=== PATIENT | male | born 1945 | race African-American/Black ===

== ENCOUNTER 2016-06-14 11:08 | Observation (INO) | payer OTHER, MEDICARE ==
[~2016-06-14] VITALS: Ht 185.4 cm; Wt 63.6 kg
[~2016-06-14 11:08] MED LIST: LORTAB 5 OR; PENICILLN VK500 MG OR
--- NOTE | 2016-06-14 11:08 | NUR ---
PT TO ROOM VIA EMS FOR TREATMENT
[2016-06-14 12:02] LABS: HEMATOCRIT 30.2 % (39.0-50.0); HEMOGLOBIN 10.5 g/dl (14.0-18.0); IMMATURE GRANULOCYTES 0.5 % (0.0-1.0); MEAN CELL VOLUME 107.9 fL CALC (80.0-100.0); MEAN CORPUSCULAR HGB 37.5 pG CALC (26.0-32.0); MEAN CORPUSCULAR HGB CONC 34.8 g/L CALC (32.0-36.0); NEUT# 4.92 thou/uL (1.82-7.42); RED BLOOD COUNT 2.8 mill/uL (4.70-6.10); RED CELL DISTRI WIDTH 11.9 % (11.5-15.5)
--- NOTE | 2016-06-14 12:15 | NUR ---
PT RESTIN GUILLERMO STRETCHER WITH NO SIGNS OF DISTRESS. RESP ARE EQUAL ANODNLABORED. IV SITE HEALTHY. PT NORMOTENSIVE WITH NO VOICED COMPLAINMTS AT [facility].
[2016-06-14 12:19] LABS: ALBUMIN 2.7 g/dL (3.2-5.0); ALKALINE PHOSPHATASE 156 u/l (38-126); ANION GAP 17 (6-22 (CALC)); BILIRUBIN, TOTAL 0.5 mg/dL (0.0-1.4); BUN 4 mg/dL (8-23); BUN/CREATININE RATIO 7 (12-20 (CALC)); CALCIUM 8.2 mg/dL (8.4-10.2); CARBON DIOXIDE 20 mmol/l (22-30); CHLORIDE 99 mmol/l (95-108); CREATININE 0.6 mg/dL (0.7-1.3); GFR > 60 ML/MIN (>=60 (CALC)); GFR FOR AFR.AMER. > 60 ML/MIN (>=60 (CALC)); GLUCOSE 112 mg/dL (82-115); POTASSIUM 3.9 mmol/l (3.5-5.1); SGOT/AST 38 u/l (19-48); SGPT/ALT 25 u/l (11-66); SODIUM 131 mmol/l (137-146); TOTAL PROTEIN 6.7 g/dL (6.3-8.2)
[2016-06-14 12:29] LABS: MYOGLOBIN 21 ng/mL (0 - 121)
--- NOTE | 2016-06-14 12:51 | NUR ---
Attempted to reconcile pt's home medications. Called Home care nurse # [phone]. No answer. Message left to return call with list of home meds.
--- NOTE | 2016-06-14 13:30 | NUR ---
PT RESTING ON THE STRETCHER WITH NO SIGNS OF DISTRESS. IV SITE EHALTHY. RESP ARE EQUAL AND OINOANBBORED. PT ALERT AND ORIEMTED.
--- NOTE | 2016-06-14 14:10 | NUR ---
PT TO ROOM VIA STRETCHER ACCOMPANIED BY STAFF; X2 PERSON TX TO BED; PT A/O X3; DENIES PAIN; TELE MONITOR IN PLACE; IVF INFUSING #22 RFA, NO REDNESS OR EDEMA AT SITE; PT STATES HH NURSE CAME TO HIS HOUSE AND BP WAS LOW FOR THE PASS 2 DAYS; RT GREAT TOE BLACK SCAB AREA NOTED; 3RD RT TOE WITH ABRASION, NO DRAINAGE NOTED; DORSAL RT FOOT 3 X 4 X 0.5 CM BLACK SCAB AREA NOTED WITHOUT DRAINAGE, AREA BRANDY; DOPPLER FOR PULSE; LT FOOT AMPUATION; LT STUMP WITH 2.75 X 4 X 0.5 AREA WHITE WITH MODERATE SEROUS DRAINAGE TO EUGENIAADEJOYCEM DRSG IN PLACE; PT STATES NOTICE AREA TO RT FOOT APPROX. 3 WEEKS. AGO; PT ORIENTED TO ROOM AND CALL SYSTEM; WILL CONTINUE TO MONITOR.
--- NOTE | 2016-06-14 14:15 | NUR ---
Admission Note Report Given to: GINA Transported by: Wheelchair X Stretcher Transported with: X Nurse Transporter X Patent IV O2 X Floor Cleaner PT LEFT ER IN STABLE CONMDITION
--- NOTE | 2016-06-14 14:15 | NUR ---
TOTOAL URINE OUTPUT OF 640MLS SINCE ARRIVAL
[2016-06-14 14:25] LABS: URINE BILIRUBIN - DIPSTICK NEGATIVE (NEGATIVE); URINE BLOOD DIPSTICK NEGATIVE (NEGATIVE); URINE CLARITY CLEAR; URINE COLOR YELLOW; URINE GLUCOSE - DIPSTICK NEGATIVE (NEGATIVE); URINE KETONE NEGATIVE (NEGATIVE); URINE LEUK ESTERASE TRACE (NEGATIVE); URINE NITRITE - DIPSTICK NEGATIVE (Negative); URINE PH 5.5 (4.5-8.0); URINE PROTEIN - DIPSTICK NEGATIVE (NEG-TRACE); URINE SPECIFIC GRAVITY <=1.005; URINE UROBILINOGEN - DIPSTICK 0.2 E.U./dL (0.2)
[2016-06-14 14:29] LABS: BARBITURATES NEGATIVE (NEGATIVE); COCAINE NEGATIVE (NEGATIVE); METHADONE NEGATIVE (NEGATIVE); OXCYCODONE NEGATIVE (NEGATIVE); TETRAHYDROCANNABIONOL NEGATIVE (NEGATIVE); TRICYLIC ANTIDEPRESSANTS NEGATIVE (NEGATIVE)
--- NOTE | 2016-06-14 16:30 | NUR ---
PT RESTING WITH EYES CLOSED; TELE MONITOR IN PLACE; WILL CONTINUE TO MONITOR.
[2016-06-14] MEDS ORDERED: LOPRESSOR25 M1 PO (16:32)
[2016-06-14] MEDS ORDERED: TAMSULOSIN0.4 MG PO (16:32)
[2016-06-14] MEDS ORDERED: LISINOPRIL10 MG PO (16:32)
[2016-06-14] MEDS ORDERED: AMLODIPINE5 MG PO (16:33)
[2016-06-14] MEDS ORDERED: FOLIC ACID1 MG PO (16:33)
[2016-06-14] MEDS ORDERED: BL VIT B-12500 MCG PO (16:33)
[2016-06-14] MEDS ORDERED: VITAMIN D1000 UNIT PO (16:33)
--- NOTE | 2016-06-14 16:34 | NUR ---
CALL FROM [facility] N[facility]SE TO INFORM THAT PT IS ON 7 MEDICATIONS, BUT SHE'S NOT IN FRONT OF HER COMPUTER TO GIVE DOSAGES. MS NURSE CHAVO NOTIFIED SINCE PT'S PRIMARY NURSE IS UNAVAILABLE
--- NOTE | 2016-06-14 19:20 | NUR ---
REPORT RECEIVED FROM APURVA; PT.APPEARS STABLE AT THIS TIME, DENIES ANY NEEDS AT THIS TIME; CALL LIGHT W/IN REACH
[2016-06-14 19:25] VITALS: BP 102/60
--- NOTE | 2016-06-14 22:45 | NUR ---
PT.REQUESTED COFFEE, PROVIDED ALONG W/SNACKS REQUESTED; CALL LIGHT W/IN REACH, PT.APPEARS STABLE AND DENIES ANY DISCOMFORT AT THIS TIME
[2016-06-15 01:31] VITALS: BP 107/69
--- NOTE | 2016-06-15 02:00 | NUR ---
PT.SLEEPING AT THIS TIME, CALL LIGHT W/IN REACH
[2016-06-15 04:00] VITALS: BP 108/63
[2016-06-15 04:56] LABS: HEMATOCRIT 25.5 % (39.0-50.0); HEMOGLOBIN 8.8 g/dl (14.0-18.0); IMMATURE GRANULOCYTES 0.4 % (0.0-1.0); MEAN CELL VOLUME 108.5 fL CALC (80.0-100.0); MEAN CORPUSCULAR HGB 37.4 pG CALC (26.0-32.0); MEAN CORPUSCULAR HGB CONC 34.5 g/L CALC (32.0-36.0); NEUT# 5.38 thou/uL (1.82-7.42); RED BLOOD COUNT 2.35 mill/uL (4.70-6.10)
[2016-06-15 05:25] LABS: ALBUMIN 2.1 g/dL (3.2-5.0); ALKALINE PHOSPHATASE 140 u/l (38-126); ANION GAP 11 (6-22 (CALC)); BILIRUBIN, TOTAL 0.6 mg/dL (0.0-1.4); BUN 3 mg/dL (8-23); BUN/CREATININE RATIO 6 (12-20 (CALC)); CALCIUM 7.6 mg/dL (8.4-10.2); CARBON DIOXIDE 21 mmol/l (22-30); CHLORIDE 108 mmol/l (95-108); CREATININE 0.5 mg/dL (0.7-1.3); GFR > 60 ML/MIN (>=60 (CALC)); GFR FOR AFR.AMER. > 60 ML/MIN (>=60 (CALC)); GLUCOSE 77 mg/dL (82-115); POTASSIUM 3.6 mmol/l (3.5-5.1); SGOT/AST 21 u/l (19-48); SGPT/ALT 24 u/l (11-66); SODIUM 136 mmol/l (137-146); TOTAL PROTEIN 5.5 g/dL (6.3-8.2)
--- NOTE | 2016-06-15 08:00 | NUR ---
REPORT RECIEVED FROM AMANDA HERMOSILLO. PT A/OX3. ASSESSMENT COMPLETED. IVF INFUSING AT PRESCRIBED RATE. WOUND CX OBTAINED OF LEFT AND RIGHT FOOT. SEE WOUND DOCUMENTATION INTERVENTION. PT DENIES ANY PAIN. VSS. WILL CONTINUE TO MONITOR. CALL LIGHT IN REACH.
[2016-06-15 08:33] VITALS: BP 110/70
--- NOTE | 2016-06-15 12:00 | NUR ---
PT SITTING UP IN BED EATING LUNCH. PT VOICES MNO CONCERNS. PT VERBALIZES UNDERSTANDING. CALL LIGHT IN REACH.
[2016-06-15 15:35] VITALS: BP 113/67
--- NOTE | 2016-06-15 16:00 | NUR ---
PT IS SITTING UP IN THE BED WITH NO DISTRESS NOTED. IV SITE IS FREE FROM REDNESS OR EDEMA. DRESSING ON LEFT STUMP IS CDI. CONTINUE TO OSBERVE AND MONITOR.
--- NOTE | 2016-06-15 19:55 | NUR ---
PT. RESTING IN BED WITH NO DISTRESS NOTED. WATCHING TV. ASSESSMENT COMPLETED. IV SITE PATENT TO RFA, EMS SITE, PT. REPORTS HE IS SUPPOSED TO BE GOING HOME AND DOES NOT WANT SITE TO BE CHANGED. PT. REPORTS THAT IF HE ENDS UP STAYING HE WILL ALLOW STAFF TO CHANGE IT TOMORROW. PT. HAS DRESSING CDI TO LEFT STUMP. RIGHT FOOT HAS OPEN AREA NOTED TO BALL OF FOOT, 4TH DIGIT TO RIGHT FOOT AND GREAT TOE, ALL OPEN TO AIR, SEE PHOTOS IN CHART. PT. INSTRUCTED TO CALL FOR ANY NEEDS. CALL LIGHT IS IN REACH.
[2016-06-15 20:18] VITALS: BP 108/61
[2016-06-15 23:32] VITALS: BP 107/62
--- NOTE | 2016-06-15 23:50 | NUR ---
PT. RESTING IN BED WITH NO DISTRESS NOTED. DENIES NEEDS/PAIN. ENCOURAGED TO CALL FOR ANY NEEDS. CALL LIGHT IS IN REACH.
[2016-06-16 04:00] VITALS: BP 106/59
[2016-06-16 06:01] LABS: HEMATOCRIT 23.2 % (39.0-50.0); HEMOGLOBIN 8.1 g/dl (14.0-18.0); IMMATURE GRANULOCYTES 0.4 % (0.0-1.0); MEAN CELL VOLUME 108.4 fL CALC (80.0-100.0); MEAN CORPUSCULAR HGB 37.9 pG CALC (26.0-32.0); MEAN CORPUSCULAR HGB CONC 34.9 g/L CALC (32.0-36.0); NEUT# 4.28 thou/uL (1.82-7.42); RED BLOOD COUNT 2.14 mill/uL (4.70-6.10); RED CELL DISTRI WIDTH 11.9 % (11.5-15.5)
[2016-06-16 06:03] LABS: ANION GAP 10 (6-22 (CALC)); BUN < 2 mg/dL (8-23); CALCIUM 7.4 mg/dL (8.4-10.2); CARBON DIOXIDE 20 mmol/l (22-30); CHLORIDE 109 mmol/l (95-108); CREATININE 0.5 mg/dL (0.7-1.3); GFR > 60 ML/MIN (>=60 (CALC)); GFR FOR AFR.AMER. > 60 ML/MIN (>=60 (CALC)); GLUCOSE 77 mg/dL (82-115); SODIUM 136 mmol/l (137-146)
--- NOTE | 2016-06-16 07:00 | NUR ---
RECEIVED BEDSIDE REPORT FROM RAD PATEL. PT RESTING IN BED WITH EYES CLOSED, AWAKENS EASILY. DENIES PAIN OR DISCOMFORT. #20 RFA INFUSING WITHOUT DIFFICULTY, SITE APPEARS HEALTHY. RESPS EVEN AND UNLABORED ON ROOM AIR, TELE MONITOR IN PLACE. VOICES NO C/O AT THIS TIME. PLAN OF CARE DISCUSSED. SAFETY PRECAUTIONS REINFORCED. BED IN LOWEST POSITION WITH WHEELS LOCKED. CALL LIGHT WITHIN REACH. ENCOURAGED PT TO CALL FOR ANY NEEDS.
[2016-06-16] MEDS ORDERED: LOPRESSOR25 MG PO (08:37)
[2016-06-16] MEDS ORDERED: LIBRIUM25 M1 PO (08:37)
[2016-06-16] MEDS ORDERED: BACTRIM DS1 TAB PO (08:38)
[2016-06-16] MEDS ORDERED: DOXYCYC MONO100 M1 PO (08:38)
[2016-06-16 08:55] VITALS: BP 110/62
[2016-06-16 08:57] VITALS: BP 110/62
--- NOTE | 2016-06-16 11:55 | NUR ---
Discharge instructions given. Patient verbalizes understanding of same. Discharged in stable condition via Wheelchair to Home with *Other. All belongings sent with pt.
== END 2016-06-16 11:55 | disposition home health service (06) | DRG 314 ==
LOC: ENPENDDIS → ED 11:08 → ED-I 12:02 → ED 12:02 → ED-I 12:44 → ED 13:21 → MS2 13:22
PROVIDERS: Emergency Medicine; Internal Medicine; ADMIT Internal Medicine; ATTEND Internal Medicine
DX: I95.9 Hypotension, unspecified (principal); R57.8 Other shock; E46 Unspecified protein-calorie malnutrition; D51.9 Vitamin B12 deficiency anemia, unspecified; E11.621 Type 2 diabetes mellitus with foot ulcer; E11.51 Type 2 diabetes mellitus with diabetic peripheral angiopathy without gangrene; E87.1 Hypo-osmolality and hyponatremia; E86.0 Dehydration; F10.10 Alcohol abuse, uncomplicated; L97.519 Non-pressure chronic ulcer of other part of right foot with unspecified severity; L08.9 Local infection of the skin and subcutaneous tissue, unspecified; F17.210 Nicotine dependence, cigarettes, uncomplicated; Y90.1 Blood alcohol level of 20-39 mg/100 ml; B95.61 Methicillin susceptible Staphylococcus aureus infection as the cause of diseases classified elsewhere; Z89.432 Acquired absence of left foot